=== PATIENT | female | born 1990 | race Two or more races ===

== ENCOUNTER 2022-01-16 15:52 | Emergency (ER) | payer SELFPAY ==
[~2022-01-16] VITALS: Ht 157.5 cm; Wt 49.4 kg
[2022-01-16 16:07] VITALS: BP 121/77
[2022-01-16] MEDS ORDERED: ACETAMINOPHEN 325 MG TABLET PO ONE (16:30)
[2022-01-16] MEDS ORDERED: ACETAMINOPHEN 325 MG TABLET ONE (16:31)
--- NOTE | 2022-01-16 16:45 | NUR ---
COVID TEST AND RAPID STREP COLLECTED AND SENT
--- NOTE | 2022-01-16 18:10 | NUR ---
Patient discharged to home in stable condition. Written and verbal after care instructions given. Patient verbalizes understanding of instruction.
== END 2022-01-16 18:10 | disposition home or self-care (01) ==
LOC: ER 15:59
DX: B34.9 Viral infection, unspecified (principal); Z20.822 Contact with and (suspected) exposure to COVID-19
CPT/HCPCS: 87070; 87426; 87880; 99283; C9803; 86403-TC